=== PATIENT | male | born 1940 | race Caucasian/White ===

== ENCOUNTER 2019-02-14 14:03 | Emergency (ER) | payer OTHER, SELFPAY ==
[2019-02-14 14:10] VITALS: BP 159/76; PULSE 67; RESP 18; TEMP 36.3; O2SAT 100; BMI 26.5
--- NOTE | 2019-02-14 14:11 | ED.EYEPROB ---
HPI - Eye Problem General Chief complaint: Eye Problems Stated complaint: R eye issues, seeing double Time Seen by Provider: 02/14/19 14:08 Source: patient Mode of arrival: ambulatory Limitations: no limitations History of Present Illness HPI Narrative: This is a 78-year-old male comes to the emergency department with complaint of double vision. Patient states he noticed it yesterday. The patient has also noticed some blurring of his vision over the last week and a half although after further discussion may have been even longer. Patient states that he has not had any headaches. He attributed his blurred vision to both levels of light when he was trying to read. The patient states he has not had any difficulty with speech he has not had any numbness, no tingling no weakness. He has not had any other symptoms. He does have a history of Lasix in his right eye which he states he had complications and still has to wear a contact on that side. Patient takes medication for blood pressure, cholesterol as well as diabetes. He denies any prior history of stroke or MT. Patient had surgery on his eye as well as bilateral knee replacements. Patient did have a screwdriver this morning. No illicit. Dr. Norman is his primary care physician. His eye doctor is in [facility]. Related Data Home Medications Medication Instructions Recorded Confirmed [TADALAFIL] 50 mg PO Q PM #0 07/04/10 Allergies Allergy/AdvReac Type Severity Reaction Status Date / Time Penicillin Allergy Severe SWELLING Uncoded 01/14/18 11:48 CHILD Review of Systems Review of Systems ROS Unobtainable: All systems reviewed & are unremarkable except as noted in HPI and below Constitutional Denies weakness Eyes Reports blurry vision, Reports diplopia (right eye only, only in peripheral vision/looking to the side.), Denies loss of vision and Denies other visual disturbances ENT Ears, Nose, Mouth, and Throat: Denies vertigo, Denies dizziness and Denies disequilibrium Cardiovascular Denies chest pain, Denies edema and Denies dyspnea Respiratory Denies dyspnea Gastrointestinal Gastrointestinal: Denies abdominal pain, Denies change in bowel habits, Denies diarrhea, Denies nausea and Denies vomiting Genitourinary Denies hematuria, Denies flank pain and Denies urinary urgency Musculoskeletal Denies abnormal gait, Denies muscle weakness and Denies numbness Integumentary/Breasts Denies rash Neurologic Denies abnormal movements, Denies abnormal speech, Denies abnormal gait, Denies vertigo, Denies dizziness, Denies focal weakness, Denies loss of vision, Denies numbness, Denies sensory deficit, Denies disequilibrium and Denies weakness PFSH Medical History (Updated 02/14/19 @ 15:31 by Darcy Hopson DO) Diabetes (Chronic) Dyslipidemia (Chronic) Hypertension (Chronic) Surgical History (Updated 02/14/19 @ 14:41 by Darcy Hopson DO) Hx of LASIK (Chronic) S/p total knee replacement, bilateral (Chronic) Social History (Updated 02/14/19 @ 14:41 by Darcy Hopson DO) Smoking Status: Never smoker alcohol intake: current substance use type: does not use Social History (Updated 02/14/19 @ 14:41 by Darcy Hopson DO) Smoking Status: Never smoker alcohol intake: current substance use type: does not use Exam Narrative Exam Narrative: GEN: well nourished, well appearing male, alert and oriented x 3, patient appears to be in mild distress. HEENT: Atraumatic, pupils are equal round reactive to light, extraocular movements are intact, nares are clear, TMs are clear with no fluid, there is no conjunctival pallor. Throat is clear without any exudates, erythema, tonsillar enlargement or uvular deviation Visual acuity: right [20/50], left [20/40] with correction. 20/25 bilaterally General: no globe trauma Eyelids: normal inspection Conjunctiva/Sclera: normal inspection Corneas: normal inspection EOM: intact, no palsy/entrapment Pupils: PERRL, normal accomadation, pupil normal Anterior Chambers: normal inspection, no hypema Posterior: normal fundoscopic on bilaterally HEART: Regular rate and rhythm without murmur, clicks, rubs. LUNGS:Lungs clear to auscultation, no wheezes, rales, crackles, chest moves symmetrically ABD:bowel sounds normal, soft, non-tender, no guarding, rebound, rigidity, no masses noted, no hepatosplenomegaly :No CVA tenderness MSCL: Non-tender, no muscle atrophy, muscles strength 5/5 upper and lower extremities, full range of motion, normal gait NEURO:CN 2-12 intact, sensation normal, reflexes 2/4 upper and lower extremities. finger nose finger test normal, heel hemphill test normal Initial Vital Signs Initial Vital Signs: Vital Signs Temperature 97.4 F L 02/14/19 14:10 Pulse Rate 67 02/14/19 14:10 Respiratory Rate 18 02/14/19 14:10 Blood Pressure 159/76 H 02/14/19 14:10 Pulse Oximetry 100 02/14/19 14:10 Scores NIH Stroke Scale Level of Conciousness: Alert, keenly responsive Ask month/age: Answers both questions correctly. Open/close eyes, close hand: Performs both tasks correctly Best gaze horizontal: Normal Visual kennedy: No visual loss Facial palsy: Normal symetrical movement Left arm drift: No drift for full 10 sec Right arm drift: No drift for full 10 sec Left leg drift: No drift for full 10 sec Right leg drift: No drift for full 10 sec Limb ataxia: Absent Sensory on face/arms/legs: Normal, no sensory loss Best language: No aphasia, normal Dysarthria: Normal Extinction or inattention: No abnormality Total NIH Stroke scale score: 0 Course Vital Signs - 8 hr 02/14/19 14:10 02/14/19 15:42 Temperature 97.4 F L Pulse Rate 67 55 L Respiratory Rate 18 16 Blood Pressure 159/76 H 131/65 Pulse Oximetry 100 100 MDM - Eye Problem MDM Narrative Medical decision making narrative: Case was discussed with Ophthalmology, no concerning issues for stroke at this time. They recommend follow up with wire weaving loom setter or patient's personal top stop attacher. Patient's physical exam is consistent with a monocular diplopia that is only occasionally present. Patient does not have any other stroke symptoms and we discussed I do not feel he needs further workup from that perspective. Patient is comfortable with the plan. He will call tomorrow to follow-up. Discharge Plan Departure Patient Disposition: Home Clinical Impression: Diplopia Discharge Date/Time: 02/14/19 15:42 Interventions: ED Discharge Assessment Last Done: 02/14/19 15:42 Instructions: DI for Double Vision Activity Restrictions/Additional Instructions: Follow-up with your top stop attacher/wire weaving loom setter on Friday. Your case was reviewed with Ophthalmology through [facility] You may continue home medications as prescribed. Return to the emergency department for new changes such as sudden vision loss, eye pain, if you are having new weakness, numbness, difficulty with speech, inability to speak, inability to walk or use her extremities or if there are numb or not working. Prescriptions: No Action [TADALAFIL] 50 mg PO Q PM Qty: 0 RF: 0 Referrals: Misha Norman MD [Primary Care Provider] -
[2019-02-14 15:42] VITALS: BP 131/65; PULSE 55; RESP 16; O2SAT 100
== END 2019-02-14 15:42 | disposition home or self-care (01) ==
PROVIDERS: Emergency Provider Emergency Medicine; PCP Family Medicine
DX: H53.2 Diplopia (principal)
CPT/HCPCS: 99282; 99283